=== PATIENT | male | born 1945 | race Caucasian/White ===

== ENCOUNTER 2020-04-04 19:32 | Inpatient (IN) | payer MEDICARE, MEDICAID ==
[~2020-04-04] VITALS: Ht 190.5 cm; Wt 107.1 kg
[~2020-04-04 19:32] MED LIST: ASPI1CPM9 PO; ATOR20TA PO; FLO0.4C PO; ZOLP5TAB8 PO
--- NOTE | 2020-04-04 20:07 | NUR ---
To CT scan via gurney with the side rails raised.
[2020-04-04 20:14] LABS: BASOPHILS # (AUTO) 0.1 X10'3 (0-0.2); BASOPHILS % (AUTO) 0.6 % (0-1); EOSINOPHILS % (AUTO) 0.3 % (0-6); HEMOGLOBIN 14.8 g/dl (14.0-17.9); LYMPHOCYTES # (AUTO) 1.9 X10'3 (1.1-4.8); LYMPHOCYTES % (AUTO) 13.3 % (21-51); MEAN CORPUSCULAR HEMOGLOBIN 29.5 PG (27.0-31.0); MEAN CORPUSCULAR HGB CONC 34.5 g/dL (33.0-36.5); MEAN CORPUSCULAR VOLUME 85.6 FL (78-98); MEAN PLATELET VOLUME 8.3 FL (7.4-10.4); MONOCYTES # (AUTO) 1.3 X10'3 (0-0.9); MONOCYTES % (AUTO) 9.1 % (2-12); NEUTROPHILS # (AUTO) 11.2 X10'3 (1.8-7.7); NEUTROPHILS % (AUTO) 76.7 % (42-75); PLATELET COUNT 209 X10'3 (140-440); RED BLOOD COUNT 5.02 X10'6 (4.70-6.10); RED CELL DISTRIBUTION WIDTH 14.2 % (11.5-14.5); WHITE BLOOD COUNT 14.6 X10'3 (4.5-11.0)
--- NOTE | 2020-04-04 20:21 | NUR ---
relieving RN for break, gave pt warm blanket, pt is resting quietly on gurney
[2020-04-04 20:25] LABS: PARTIAL THROMBOPLASTIN TIME 26 SECONDS (22-32)
[2020-04-04 20:27] LABS: ALANINE AMINOTRANSFERASE 22 U/L (12-78); ALBUMIN 2.8 G/DL (3.4-5.0); ALBUMIN/GLOBULIN RATIO 0.7 (1.1-1.5); ALKALINE PHOSPHATASE 119 IU/L (46-116); ANION GAP 9 (8-16); ASPARTATE AMINO TRANSFERASE 24 U/L (10-37); BILIRUBIN,TOTAL 2.1 MG/DL (0.1-1.0); BLOOD UREA NITROGEN 14 MG/DL (7-18); BUN/CREATININE RATIO 13.2 (5.4-32.0); CHLORIDE 99 MMOL/L (99-107); CREATININE 1.06 MG/DL (0.60-1.10); GLUCOSE 130 MG/DL (70-104); SODIUM 137 MMOL/L (135-145); TOTAL CARBON DIOXIDE 28.7 MMOL/L (24-32); eGFR 68 ML/MIN
[2020-04-04 20:29] LABS: POTASSIUM 2.3 MMOL/L (3.5-5.1)
[2020-04-04] MEDS ORDERED: potassium 10mEq/100ml NS w/LIDOcaine (10mg/bag) IV SCH (20:35)
[2020-04-04 20:40] LABS: HEMOGLOBIN A1C 6.2 % (4.5-6.2)
[2020-04-04] MEDS: potassium Cl 10 mEq/100mL bag IV SCH ×2 (20:47→22:10)
[2020-04-04] MEDS: magnesium 2GM in 50ml NS 50 ML IV SCH ×2 (20:50→22:11)
[2020-04-04] MEDS ORDERED: ondansetron/PF 4mg/2ml inj IV ONE (21:00)
--- NOTE | 2020-04-04 21:00 | NUR ---
Pt reports nausea started after the potassium and magnesium infusion started. Dr. Rios notified and order for zofran obtained.
[2020-04-04] MEDS ORDERED: metroNIDAZOLE-Flagyl 500mg/NS 100 ML IV STA (21:12)
[2020-04-04] MEDS ORDERED: ASPI-1265 PO (21:14)
[2020-04-04] MEDS ORDERED: FINA5TAB11 PO (21:14)
[2020-04-04] MEDS ORDERED: HYDR25TA4 PO (21:14)
[2020-04-04] MEDS ORDERED: METF-950 PO (21:14)
[2020-04-04] MEDS ORDERED: OLAN5TAB26 PO (21:14)
[2020-04-04] MEDS ORDERED: ATOR20TA66 PO (21:14)
[2020-04-04] MEDS ORDERED: FLO0.4C PO (21:14)
[2020-04-04] MEDS ORDERED: ciprofloxacin lact 400MG/200ML 200 ML IV SCH (21:15)
[2020-04-04] MEDS ORDERED: insulin Lispro (HumaLOG) vial - multi-dose SQ SCH (22:05)
[2020-04-04] MEDS ORDERED: acetaminophen 325mg tablet PO PRN (22:05)
[2020-04-04] MEDS ORDERED: glucagon, human recombinant 1mg kit SUBCUT PRN (22:05)
[2020-04-04] MEDS ORDERED: dextrose ORAL solution 15 GM/59 ML bottle PO PRN ×2 (22:05)
[2020-04-04] MEDS ORDERED: MESSAGE TO PHARMACY PO ONE (22:05)
[2020-04-04] MEDS ORDERED: ondansetron/PF 4mg/2ml inj IV PRN (22:05)
[2020-04-04] MEDS ORDERED: dextrose 50%-water 50ml dispensing syringe IV PRN ×2 (22:05)
[2020-04-04] MEDS: potassium CL 10mEq/100ml bag 100 ML IV PRN (23:53)
[2020-04-05] VITALS: BP 134/82
[2020-04-05] MEDS: normal saline 1000ml 1,000 ML IV SCH ×3 (00:15→14:53)
[2020-04-05] MEDS: potassium CL 10mEq/100ml bag 100 ML IV PRN ×7 (01:10→19:02)
--- NOTE | 2020-04-05 02:00 | NUR ---
UA collected and sent to lab.
[2020-04-05 02:11] LABS: CLARITY,URINE SLIGHTLY CLOUDY (Clear); COLOR,URINE YELLOW (Yellow); GLUCOSE, URINE NEGATIVE (Neg); KETONES,URINE TRACE mg/dl (Neg); LEUKOCYTE ESTERASE ,URINE MODERATE (Neg); NITRITES, URINE POSITIVE (Neg); OCCULT BLOOD,URINE MODERATE (Neg); PROTEIN,URINE TRACE mg/dl (Neg)
[2020-04-05 02:18] LABS: UA COLLECTION TYPE CLN CATCH MIDSTREAM
[2020-04-05 02:19] LABS: BACTERIA,URINE 4+ /HPF (Neg); SQUAMOUS EPITHELIAL CELL,UR FEW /LPF (FEW); WBC,URINE 50-100 /HPF (0-4)
[2020-04-05] MEDS: metroNIDAZOLE-Flagyl 500mg/NS 100 ML IV SCH ×2 (05:56→14:47)
[2020-04-05 06:40] LABS: BASOPHILS % (AUTO) 0.4 % (0-1); EOSINOPHILS # (AUTO) 0.1 X10'3 (0-0.9); HEMATOCRIT 45.2 % (42.0-52.0); HEMOGLOBIN 15.2 g/dl (14.0-17.9); LYMPHOCYTES # (AUTO) 1.5 X10'3 (1.1-4.8); LYMPHOCYTES % (AUTO) 11.9 % (21-51); MEAN CORPUSCULAR HEMOGLOBIN 29.4 PG (27.0-31.0); MEAN CORPUSCULAR HGB CONC 33.6 g/dL (33.0-36.5); MEAN CORPUSCULAR VOLUME 87.7 FL (78-98); MEAN PLATELET VOLUME 8.3 FL (7.4-10.4); MONOCYTES % (AUTO) 7.8 % (2-12); NEUTROPHILS # (AUTO) 10.3 X10'3 (1.8-7.7); NEUTROPHILS % (AUTO) 78.9 % (42-75); PLATELET COUNT 190 X10'3 (140-440); RED BLOOD COUNT 5.15 X10'6 (4.70-6.10); RED CELL DISTRIBUTION WIDTH 14.5 % (11.5-14.5)
[2020-04-05 07:12] LABS: ALANINE AMINOTRANSFERASE 19 U/L (12-78); ALBUMIN 2.7 G/DL (3.4-5.0); ALBUMIN/GLOBULIN RATIO 0.6 (1.1-1.5); ALKALINE PHOSPHATASE 118 IU/L (46-116); ANION GAP 10 (8-16); BILIRUBIN,TOTAL 1.9 MG/DL (0.1-1.0); BLOOD UREA NITROGEN 13 MG/DL (7-18); CALCIUM 8.7 MG/DL (8.5-10.1); CHLORIDE 100 MMOL/L (99-107); CREATININE 0.93 MG/DL (0.60-1.10); GLUCOSE 118 MG/DL (70-104); MAGNESIUM 2.9 MG/DL (1.5-2.4); SODIUM 136 MMOL/L (135-145); TOTAL CARBON DIOXIDE 26.3 MMOL/L (24-32); TOTAL PROTEIN 7.2 G/DL (6.4-8.2); eGFR 79 ML/MIN
[2020-04-05 07:14] LABS: ASPARTATE AMINO TRANSFERASE 32 U/L (10-37)
[2020-04-05 07:15] LABS: POTASSIUM 3.1 MMOL/L (3.5-5.1)
[2020-04-05 07:17] VITALS: BP 133/79
[2020-04-05] MEDS: tamsulosin 0.4mg capsule PO SCH (07:24)
[2020-04-05] MEDS: ciprofloxacin lact 400MG/200ML 200 ML IV SCH ×2 (07:56→21:28)
[2020-04-05] MEDS ORDERED: heparin, porcine 5000 units/ml vial SQ SCH (08:00)
[2020-04-05] MEDS: K and/or MAG REPLACEMENT MC SCH ×2 (08:03→20:00)
--- NOTE | 2020-04-05 09:28 | NUR ---
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
[2020-04-05] MEDS ORDERED: iohexol 300mg/ml 100ml inj. ONE (10:20)
[2020-04-05] MEDS ORDERED: diatr meglu/diatrizoate 30ml oral sol.-(3 dose) bottle ONE (10:40)
--- NOTE | 2020-04-05 12:01 | NUR ---
DM/malnutrition consults: Per consult pt newly diagnosed however per H&P pt already with rx for Metformin with known PMH of T2DM per ED report. Current A1c is 6.2%, DM education not warranted at this time. 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 Only wt hx is 99 kg taken in November 2012 with nitin, current documented wt is 106 kg however no documentation of how wt was obtained. Pt currently NPO with NG tube in place, admit with questionable diverticulitis, pelvic abscess, or bowel obstruction per MD note. Pt documented with severe general weakness and no edema. Pt appears well developed and well nourished per ED report. Pt currently lacks a minimum of two criteria for malnutrition. Pt with a low Steven of 12, no edema or wounds per physical assessment. Will continue to follow. Addendum: 04/05/20 at [address] Amended: Links added.
[2020-04-05 15:30] VITALS: BP 143/81
[2020-04-05] MEDS ORDERED: iohexol 350MG/ML 100ml bottle IV ONE (15:50)
[2020-04-05] MEDS ORDERED: heparin 10,000 units/1 ML INJ IV SCH (16:55)
[2020-04-05] MEDS ORDERED: heparin 10,000 units/1 ML INJ IV ONE (16:55)
[2020-04-05] MEDS ORDERED: heparin 10,000 units/1 ML INJ IV PRN (17:30)
[2020-04-05] MEDS: heparin 25,000 UNIT/250ml bag 250 ML IV SCH (17:48)
[2020-04-05 17:50] LABS: ABG BASE EXCESS 4.4 mmol/L (-2.0-3.0); ABG HCO3 27.9 mmol/L (22.0-26.0); ABG OXYGEN SATURATION 92.6 % (95-98); ABG PH (T) 7.484 (7.350-7.450); ABG PO2 (T) 60.9 mmHg (83-108); FCOHb 0.5 % (0.5-1.5); FMetHb 0.2 % (0.3-1.12); TOTAL HEMOGLOBIN 14.9 G/dl (14.0-17.9)
[2020-04-05 17:57] LABS: BASOPHILS # (AUTO) 0.1 X10'3 (0-0.2); BASOPHILS % (AUTO) 0.7 % (0-1); EOSINOPHILS # (AUTO) 0.1 X10'3 (0-0.9); EOSINOPHILS % (AUTO) 0.8 % (0-6); HEMATOCRIT 41.3 % (42.0-52.0); HEMOGLOBIN 14.2 g/dl (14.0-17.9); LYMPHOCYTES # (AUTO) 1.1 X10'3 (1.1-4.8); LYMPHOCYTES % (AUTO) 8.7 % (21-51); MEAN CORPUSCULAR HEMOGLOBIN 29.6 PG (27.0-31.0); MEAN CORPUSCULAR HGB CONC 34.4 g/dL (33.0-36.5); MEAN PLATELET VOLUME 8.4 FL (7.4-10.4); MONOCYTES % (AUTO) 8.1 % (2-12); NEUTROPHILS # (AUTO) 10.2 X10'3 (1.8-7.7); NEUTROPHILS % (AUTO) 81.7 % (42-75); PLATELET COUNT 195 X10'3 (140-440); RED BLOOD COUNT 4.81 X10'6 (4.70-6.10); RED CELL DISTRIBUTION WIDTH 14.2 % (11.5-14.5); WHITE BLOOD COUNT 12.5 X10'3 (4.5-11.0)
[2020-04-05 18:10] LABS: PARTIAL THROMBOPLASTIN TIME 26 SECONDS (22-32)
--- NOTE | 2020-04-05 18:30 | NUR ---
Patient in room SURG 347. I have received report from CHANDRA VANN and had the opportunity to ask questions and assume patient care. PATIENT FOR TRANSFER TO PCU FOR CLOSE MONITORING AWAITING FOR ROOM ASSIGNMENT.
[2020-04-05 19:00] VITALS: BP 132/75
--- NOTE | 2020-04-05 19:10 | NUR ---
PAGER ID: [phone] MESSAGE: Janine Surg [id number] Re: [id number] Sebastien Medication neostigmine Can't be given on PCU please call
--- NOTE | 2020-04-05 19:45 | NUR ---
CHARGE NURSE GOT ROOM ASSIGNMENT OF PATIENT IN PCU ROOM 3014W. PATIENT REPORT GIVEN TO KALYAN VANN.
--- NOTE | 2020-04-05 19:55 | NUR ---
PATIENT TRANSFERRED TO PCU ROOM 3018A IN A BED WITH STAFF WITH PATIENT'S BELONGINGS.
[2020-04-05 20:00] VITALS: BP 122/72
[2020-04-05] MEDS: zolpidem 5mg tablet PO SCH (21:29)
[2020-04-05 22:00] VITALS: BP 113/73
[2020-04-06] MEDS: metroNIDAZOLE-Flagyl 500mg/NS 100 ML IV SCH ×4 (00:46→23:29)
[2020-04-06 02:00] VITALS: BP 119/78
[2020-04-06] MEDS: normal saline 1000ml 1,000 ML IV SCH ×2 (02:55→14:02)
[2020-04-06 03:29] LABS: BASOPHILS # (AUTO) 0.1 X10'3 (0-0.2); BASOPHILS % (AUTO) 0.7 % (0-1); EOSINOPHILS # (AUTO) 0.1 X10'3 (0-0.9); EOSINOPHILS % (AUTO) 1.1 % (0-6); HEMATOCRIT 42.4 % (42.0-52.0); HEMOGLOBIN 14.6 g/dl (14.0-17.9); LYMPHOCYTES # (AUTO) 1.7 X10'3 (1.1-4.8); LYMPHOCYTES % (AUTO) 13.7 % (21-51); MEAN CORPUSCULAR HEMOGLOBIN 29.5 PG (27.0-31.0); MEAN CORPUSCULAR HGB CONC 34.5 g/dL (33.0-36.5); MEAN CORPUSCULAR VOLUME 85.6 FL (78-98); MEAN PLATELET VOLUME 8.3 FL (7.4-10.4); MONOCYTES % (AUTO) 7.6 % (2-12); NEUTROPHILS # (AUTO) 9.6 X10'3 (1.8-7.7); NEUTROPHILS % (AUTO) 76.9 % (42-75); PLATELET COUNT 216 X10'3 (140-440); RED BLOOD COUNT 4.96 X10'6 (4.70-6.10); RED CELL DISTRIBUTION WIDTH 14.1 % (11.5-14.5); WHITE BLOOD COUNT 12.5 X10'3 (4.5-11.0)
[2020-04-06 03:44] LABS: ALANINE AMINOTRANSFERASE 19 U/L (12-78); ALBUMIN 2.5 G/DL (3.4-5.0); ALBUMIN/GLOBULIN RATIO 0.6 (1.1-1.5); ALKALINE PHOSPHATASE 109 IU/L (46-116); ANION GAP 7 (8-16); ASPARTATE AMINO TRANSFERASE 21 U/L (10-37); BILIRUBIN,TOTAL 1.2 MG/DL (0.1-1.0); BLOOD UREA NITROGEN 11 MG/DL (7-18); BUN/CREATININE RATIO 12.1 (5.4-32.0); CALCIUM 8.7 MG/DL (8.5-10.1); CHLORIDE 100 MMOL/L (99-107); CREATININE 0.91 MG/DL (0.60-1.10); GLUCOSE 111 MG/DL (70-104); SODIUM 137 MMOL/L (135-145); TOTAL CARBON DIOXIDE 30.4 MMOL/L (24-32); TOTAL PROTEIN 6.8 G/DL (6.4-8.2); eGFR 81 ML/MIN
[2020-04-06 03:48] LABS: POTASSIUM 2.6 MMOL/L (3.5-5.1)
--- NOTE | 2020-04-06 04:21 | NUR ---
notified DVT PTT was 135. Will follow protocol per order and turn off for 2 hours.
--- NOTE | 2020-04-06 04:24 | NUR ---
Potassium is 2.6. Will follow protocol.
[2020-04-06] MEDS: potassium CL 10mEq/100ml bag 100 ML IV PRN ×6 (04:30→15:57)
[2020-04-06 06:00] VITALS: BP 129/67
--- NOTE | 2020-04-06 06:15 | NUR ---
Problems reprioritized. Patient report given, questions answered & plan of care reviewed with EDWAR Roger.
--- NOTE | 2020-04-06 06:17 | NUR ---
Patient in room PCU 3018. I have received report from Graciela VANN and had the opportunity to ask questions and assume patient care.
[2020-04-06] MEDS: heparin 25,000 UNIT/250ml bag 250 ML IV SCH ×2 (06:36→11:22)
[2020-04-06] MEDS: K and/or MAG REPLACEMENT MC SCH ×2 (07:46→19:36)
[2020-04-06] MEDS: tamsulosin 0.4mg capsule PO SCH (07:47)
[2020-04-06] MEDS: ciprofloxacin lact 400MG/200ML 200 ML IV SCH ×2 (09:36→20:42)
[2020-04-06 11:00] VITALS: BP 133/83
[2020-04-06 15:00] VITALS: BP 128/76
[2020-04-06] MEDS ORDERED: POTASSIUM BICARB 20meq eff tab 20 MEQ TABLET.EFF PO ONE (15:45)
[2020-04-06] MEDS ORDERED: neostigmine methylsulfate 1 MG/ML 10ml vial IV ONE ×2 (16:00→19:00)
[2020-04-06] MEDS ORDERED: atropine 0.1mg/ml 10ml syringe ONE (16:29)
[2020-04-06] MEDS ORDERED: atropine 0.1mg/ml 10ml syringe IV ONE (16:30)
--- NOTE | 2020-04-06 17:00 | NUR ---
Administered neostigmine per MD orders, pt placed on bedside monitor, atropine and crash cart at bedside per Dr. Sapp recommendations, post administration patient went bradycardic with the lowest at 38 but was able to recover and maintain BPM in 70's-80's, patient had mucus BM however abdomen is still firm, reported to Dr. Sapp and she will come and assess patient, will continue to monitor.
[2020-04-06 18:00] VITALS: BP 132/76
--- NOTE | 2020-04-06 18:31 | NUR ---
Problems reprioritized. Patient report given, questions answered & plan of care reviewed with Michael VANN.
--- NOTE | 2020-04-06 18:35 | NUR ---
Patient in room PCU 3018. I have received report from Toni VANN and had the opportunity to ask questions and assume patient care.
[2020-04-06] MEDS: potassium CL 10mEq/100ml bag 100 ML IV SCH ×4 (19:12→22:00)
[2020-04-06] MEDS: zolpidem 5mg tablet PO SCH (20:37)
[2020-04-06 22:00] VITALS: BP 130/73
[2020-04-07] MEDS: normal saline 1000ml 1,000 ML IV SCH ×3 (00:02→20:02)
[2020-04-07 02:00] VITALS: BP 137/72
[2020-04-07 02:45] LABS: BASOPHILS # (AUTO) 0.1 X10'3 (0-0.2); BASOPHILS % (AUTO) 0.5 % (0-1); EOSINOPHILS # (AUTO) 0.1 X10'3 (0-0.9); EOSINOPHILS % (AUTO) 0.3 % (0-6); HEMATOCRIT 31.4 % (42.0-52.0); HEMOGLOBIN 10.5 g/dl (14.0-17.9); LYMPHOCYTES # (AUTO) 1.5 X10'3 (1.1-4.8); LYMPHOCYTES % (AUTO) 9.4 % (21-51); MEAN CORPUSCULAR HEMOGLOBIN 29.1 PG (27.0-31.0); MEAN CORPUSCULAR HGB CONC 33.4 g/dL (33.0-36.5); MEAN PLATELET VOLUME 8.6 FL (7.4-10.4); MONOCYTES # (AUTO) 1.1 X10'3 (0-0.9); NEUTROPHILS # (AUTO) 13.2 X10'3 (1.8-7.7); NEUTROPHILS % (AUTO) 82.8 % (42-75); PLATELET COUNT 307 X10'3 (140-440); RED BLOOD COUNT 3.61 X10'6 (4.70-6.10); RED CELL DISTRIBUTION WIDTH 14.5 % (11.5-14.5)
[2020-04-07 02:54] LABS: ALANINE AMINOTRANSFERASE 14 U/L (12-78); ALBUMIN 2.2 G/DL (3.4-5.0); ALBUMIN/GLOBULIN RATIO 0.6 (1.1-1.5); ALKALINE PHOSPHATASE 92 IU/L (46-116); ANION GAP 7 (8-16); ASPARTATE AMINO TRANSFERASE 23 U/L (10-37); BILIRUBIN,TOTAL 0.9 MG/DL (0.1-1.0); BLOOD UREA NITROGEN 16 MG/DL (7-18); BUN/CREATININE RATIO 18.6 (5.4-32.0); CALCIUM 8.9 MG/DL (8.5-10.1); CHLORIDE 103 MMOL/L (99-107); CREATININE 0.86 MG/DL (0.60-1.10); GLUCOSE 116 MG/DL (70-104); POTASSIUM 3.2 MMOL/L (3.5-5.1); SODIUM 139 MMOL/L (135-145); TOTAL CARBON DIOXIDE 29.4 MMOL/L (24-32); TOTAL PROTEIN 6.1 G/DL (6.4-8.2); eGFR 87 ML/MIN
[2020-04-07] MEDS: potassium CL 10mEq/100ml bag 100 ML IV PRN ×3 (03:50→07:37)
[2020-04-07] MEDS: heparin 25,000 UNIT/250ml bag 250 ML IV SCH ×2 (04:50→09:29)
[2020-04-07] MEDS: metroNIDAZOLE-Flagyl 500mg/NS 100 ML IV SCH ×3 (05:51→20:27)
[2020-04-07 06:00] VITALS: BP 144/93
--- NOTE | 2020-04-07 06:25 | NUR ---
Problems reprioritized. Patient report given, questions answered & plan of care reviewed with Denny VANN.
--- NOTE | 2020-04-07 06:35 | NUR ---
Patient in room PCU 3018. I have received report from EDWAR Rodriguez and had the opportunity to ask questions and assume patient care.
[2020-04-07] MEDS: K and/or MAG REPLACEMENT MC SCH ×2 (07:22→20:00)
[2020-04-07] MEDS: ciprofloxacin lact 400MG/200ML 200 ML IV SCH (07:37)
[2020-04-07] MEDS: finasteride 5mg tablet PO SCH (07:47)
[2020-04-07] MEDS: tamsulosin 0.4mg capsule PO SCH ×2 (08:00→10:33)
[2020-04-07] MEDS: OLANZAPINE 5 MG TABLET PO SCH (08:00)
--- NOTE | 2020-04-07 08:21 | NUR ---
AGER ID: [phone] MESSAGE: [phone] Benoit Crowe: Do you want a new KUB today? KUB from yesterday show NG is kinked on itself. NG is suctioning out GI contents well. And sounds are audible when we pushing air through and listening. EDWAR Baldwin Ext [phone]
[2020-04-07] MEDS ORDERED: POTASSIUM BICARB 20meq eff tab 20 MEQ TABLET.EFF PO ONE (08:45)
[2020-04-07] MEDS: aspirin 81mg tab.chew PO SCH (08:52)
[2020-04-07] MEDS: atorvastatin 20mg tablet PO SCH (08:52)
[2020-04-07 11:00] VITALS: BP 150/88
[2020-04-07] MEDS ORDERED: neostigmine methylsulfate 1 MG/ML 10ml vial IV ONE (12:00)
[2020-04-07 15:00] VITALS: BP 143/82
[2020-04-07 16:00] LABS: BASOPHILS # (AUTO) 0.2 X10'3 (0-0.2); BASOPHILS % (AUTO) 1.7 % (0-1); EOSINOPHILS # (AUTO) 0.1 X10'3 (0-0.9); EOSINOPHILS % (AUTO) 1.3 % (0-6); HEMATOCRIT 39.4 % (42.0-52.0); HEMOGLOBIN 13.4 g/dl (14.0-17.9); LYMPHOCYTES # (AUTO) 1.1 X10'3 (1.1-4.8); LYMPHOCYTES % (AUTO) 9.7 % (21-51); MEAN CORPUSCULAR HEMOGLOBIN 29.3 PG (27.0-31.0); MEAN CORPUSCULAR HGB CONC 33.9 g/dL (33.0-36.5); MEAN CORPUSCULAR VOLUME 86.3 FL (78-98); MEAN PLATELET VOLUME 9.1 FL (7.4-10.4); MONOCYTES # (AUTO) 0.8 X10'3 (0-0.9); NEUTROPHILS # (AUTO) 8.9 X10'3 (1.8-7.7); NEUTROPHILS % (AUTO) 80.3 % (42-75); PLATELET COUNT 250 X10'3 (140-440); RED BLOOD COUNT 4.57 X10'6 (4.70-6.10); RED CELL DISTRIBUTION WIDTH 14.1 % (11.5-14.5); WHITE BLOOD COUNT 11.1 X10'3 (4.5-11.0)
[2020-04-07] MEDS: pantoprazole 40MG/NS 100ML BAG 100 ML IV SCH ×2 (16:48→20:30)
--- NOTE | 2020-04-07 18:31 | NUR ---
Problems reprioritized. Patient report given, questions answered & plan of care reviewed with EDWAR Daniels.
--- NOTE | 2020-04-07 18:32 | NUR ---
Patient in room PCU 3018A. I have received report from EDWAR DOAN and had the opportunity to ask questions and assume patient care. PATIENT AWAKE FOR BEDSIDE REPORT. NG ON LOW/INTERMITTENT SUCTION WITH DARK BROWN/RED OUTPUT. ON ROOM AIR WITH HEPARIN GTT INFUSING AT 1400 UNITS/HR, NS INFUSING AT 100 ML/HR, AND PROTONIX GTT INFUSING AT 20 ML/HR. WILL CONTINUE TO MONITOR CLOSELY.
[2020-04-07 19:00] VITALS: BP 146/85
[2020-04-07] MEDS: zolpidem 5mg tablet PO SCH (20:10)
--- NOTE | 2020-04-07 21:32 | NUR ---
6 PTT 66 SECONDS AND WITHIN THERAPEUTIC RANGE FOR DVT/PE HEPARIN GTT PROTOCOL. NEXT DRAW AT 0300. WILL CONTINUE TO MONITOR CLOSELY.
[2020-04-07 22:31] VITALS: BP 139/80
[2020-04-08] MEDS: pantoprazole 40MG/NS 100ML BAG 100 ML IV SCH ×5 (01:00→21:21)
[2020-04-08] MEDS: heparin 25,000 UNIT/250ml bag 250 ML IV SCH ×2 (01:03→14:01)
[2020-04-08 03:00] VITALS: BP 133/76
[2020-04-08 03:44] LABS: BASOPHILS # (AUTO) 0.1 X10'3 (0-0.2); BASOPHILS % (AUTO) 1.1 % (0-1); EOSINOPHILS # (AUTO) 0.2 X10'3 (0-0.9); EOSINOPHILS % (AUTO) 1.9 % (0-6); HEMOGLOBIN 13.2 g/dl (14.0-17.9); LYMPHOCYTES # (AUTO) 1.5 X10'3 (1.1-4.8); LYMPHOCYTES % (AUTO) 17.7 % (21-51); MEAN CORPUSCULAR HGB CONC 33.9 g/dL (33.0-36.5); MEAN CORPUSCULAR VOLUME 85.7 FL (78-98); MEAN PLATELET VOLUME 8.4 FL (7.4-10.4); MONOCYTES # (AUTO) 0.7 X10'3 (0-0.9); MONOCYTES % (AUTO) 7.8 % (2-12); NEUTROPHILS # (AUTO) 6.2 X10'3 (1.8-7.7); NEUTROPHILS % (AUTO) 71.5 % (42-75); PLATELET COUNT 267 X10'3 (140-440); RED BLOOD COUNT 4.55 X10'6 (4.70-6.10); RED CELL DISTRIBUTION WIDTH 14.6 % (11.5-14.5); WHITE BLOOD COUNT 8.7 X10'3 (4.5-11.0)
[2020-04-08 04:02] LABS: ALANINE AMINOTRANSFERASE 14 U/L (12-78); ALBUMIN 2.2 G/DL (3.4-5.0); ALBUMIN/GLOBULIN RATIO 0.6 (1.1-1.5); ALKALINE PHOSPHATASE 89 IU/L (46-116); ANION GAP 6 (8-16); ASPARTATE AMINO TRANSFERASE 22 U/L (10-37); BILIRUBIN,TOTAL 0.9 MG/DL (0.1-1.0); CALCIUM 8.7 MG/DL (8.5-10.1); CHLORIDE 106 MMOL/L (99-107); CREATININE 0.87 MG/DL (0.60-1.10); GLUCOSE 100 MG/DL (70-104); SODIUM 141 MMOL/L (135-145); TOTAL CARBON DIOXIDE 28.7 MMOL/L (24-32); TOTAL PROTEIN 6.1 G/DL (6.4-8.2); eGFR 86 ML/MIN
[2020-04-08 04:22] LABS: BLOOD UREA NITROGEN 8 MG/DL (7-18); BUN/CREATININE RATIO 9.2 (5.4-32.0)
[2020-04-08 04:24] LABS: POTASSIUM 2.8 MMOL/L (3.5-5.1)
[2020-04-08] MEDS ORDERED: magnesium Cl slow-release 64mg tablet PO PRN (04:35)
[2020-04-08] MEDS ORDERED: magnesium 4gm in 100ml NS 100 ML IV PRN (04:35)
[2020-04-08] MEDS ORDERED: potassium Cl 20 mEq SR tablet PO PRN ×2 (04:35)
[2020-04-08] MEDS ORDERED: K and/or MAG REPLACEMENT MC SCH (04:35)
[2020-04-08] MEDS: potassium CL 10mEq/100ml bag 100 ML IV PRN ×5 (05:05→12:19)
[2020-04-08] MEDS: normal saline 1000ml 1,000 ML IV SCH ×3 (05:05→20:08)
[2020-04-08] MEDS: metroNIDAZOLE-Flagyl 500mg/NS 100 ML IV SCH ×3 (06:23→21:21)
--- NOTE | 2020-04-08 06:30 | NUR ---
Patient in room PCU 3018. I have received report from Jeremiah VANN and had the opportunity to ask questions and assume patient care.
--- NOTE | 2020-04-08 06:43 | NUR ---
Problems reprioritized. Patient report given, questions answered & plan of care reviewed with EDWAR MCCAULEY AND EDWAR TURNER.
--- NOTE | 2020-04-08 06:57 | NUR ---
Patient in room PCU 3018. I have received report from Jeremiah VANN and had the opportunity to ask questions and assume patient care.
[2020-04-08 07:00] VITALS: BP 147/83
[2020-04-08 07:31] LABS: MAGNESIUM 2.3 MG/DL (1.5-2.4)
[2020-04-08 07:34] LABS: POTASSIUM 3.1 MMOL/L (3.5-5.1)
[2020-04-08] MEDS: atorvastatin 20mg tablet PO SCH (08:00)
[2020-04-08] MEDS: aspirin 81mg tab.chew PO SCH (08:00)
[2020-04-08] MEDS: K and/or MAG REPLACEMENT MC SCH ×2 (08:00→20:00)
[2020-04-08] MEDS: OLANZAPINE 5 MG TABLET PO SCH (08:00)
[2020-04-08] MEDS: finasteride 5mg tablet PO SCH (08:00)
[2020-04-08] MEDS: tamsulosin 0.4mg capsule PO SCH (08:00)
[2020-04-08] MEDS: CefTRIAXone 2gm/D5W 50ml 50 ML IV SCH (08:20)
--- NOTE | 2020-04-08 08:52 | NUR ---
Paged Darren Re: Benoit Crowe, rm [id number]. Patient has NG tube to suction. Am medication are PO. Would you like us to stop suction and crash/adminst am medications? Lina VANN [phone]
--- NOTE | 2020-04-08 09:24 | NUR ---
Problems reprioritized. Patient report given, questions answered & plan of care reviewed with Shagufta Medrano. Patient stable at transfer of care.
--- NOTE | 2020-04-08 09:25 | NUR ---
Patient in room PCU 3018. I have received report from EDWAR Chacon and had the opportunity to ask questions and assume patient care.
--- NOTE | 2020-04-08 09:56 | NUR ---
PAGER ID: [phone] MESSAGE: Dr. Banks, pt Saul Crowe [facility] rm 18A. pt NPO, refusing some meds. Have questions about the medications. Please call when available? Sendy Eagle RN [phone]
[2020-04-08 11:00] VITALS: BP 130/81
--- NOTE | 2020-04-08 11:38 | NUR ---
Atropine doses x2 on eMAR, Not given by me during this shift. They were one time doses. timed-out.
--- NOTE | 2020-04-08 12:30 | NUR ---
PAGER ID: [phone] MESSAGE: Evangelist Banks pt Saul Crowe on PCU rm 18A, now having bright red blood from NG tube. Please call Eva Eagle RN PCU [phone]
--- NOTE | 2020-04-08 12:33 | NUR ---
Dr. Banks order the low intermittent suction to be on hold for now due to the bright red blood from the NG tube.
--- NOTE | 2020-04-08 12:47 | NUR ---
Contacted Dr. Banks regarding change in the color of fluid from NG tube. Patient is on heparin. Dr. Banks wanted NG tube stopped for 4 hours then turn back on to reassess. Dr. Banks states pt has large PE and she does not want the Heparin stopped.
[2020-04-08] MEDS ORDERED: bisacodyl 10mg suppository rectal RC PRN (13:30)
[2020-04-08 15:00] VITALS: BP 106/76
--- NOTE | 2020-04-08 16:21 | NUR ---
PRESSURE ULCER EDUCATION: DEFINITION: A pressure ulcer is an area of skin that breaks down when you stay in one position too long. The constant pressure against the skin reduces the blood flow to that area and the affected tissue dies. CAUSES: "Being bedridden or in a wheelchair "Fragile skin "Having a chronic condition, such as diabetes or vascular disease "Inability to move certain parts of your body without assistance "Older age "Incontinence of urine or stool SYMPTOMS: "A reddened area that DOES NOT turn white when pressed on - this can be the beginning of a pressure ulcer "A blister, deep sore or a crater - these can be advanced pressure ulcers FIRST AID: "Relieve the pressure on this area "Keep the area clean and dry "Call your primary doctor if you see any of the above symptoms "DO NOT massage the area "DO NOT use a donut shaped or ring shaped pillow- these actually interfere with the blood flow and cause complications PREVENTION: "Check for pressure ulcers everyday "Change position at least every two hours to relieve pressure "Use items that help relieve pressure- pillows, sheepskin, foam padding, and powders. "Keep skin clean and dry "Eat healthy well balanced meals "Exercise daily IF YOU SEE ANY OF THESE SYMPTOMS WHILE IN THE HOSPITAL - TELL YOUR NURSE IMMEDIATELY. IF YOU SEE ANY OF THESE SYMPTOMS WHILE AT HOME OR HAVE ANY QUESTIONS OR CONCERNS ABOUT PRESSURE ULCERS - CALL YOUR PRIMARY DOCTOR IMMEDIATELY. Addendum: 04/08/20 at 1621 by Catrina Milner RN Amended: Links added.
--- NOTE | 2020-04-08 18:25 | NUR ---
Patient in room PCU 3018A. I have received report from EDWAR FREITAS and had the opportunity to ask questions and assume patient care. PATIENT AWAKE FOR BEDSIDE REPORT. PATIENT ON 2L AND STABLE AT THIS TIME. HEPARIN INFUSING AT 1300 UNITS/HR. NEXT PTT AT 2000 PER DAY SHIFT RN. PROTONIX INFUSING AT 20 ML/HR. NS INFUSING AT 100 ML/HR PER PROVIDER ORDER. WILL CONTINUE TO MONITOR CLOSELY.
--- NOTE | 2020-04-08 18:25 | NUR ---
Problems reprioritized. Patient report given, questions answered & plan of care reviewed with EDWAR Crenshaw.
[2020-04-08 19:00] VITALS: BP 146/93
[2020-04-08] MEDS: lactobacillus rhamnosus 10,000 MMU CELLS/CAPSULE PO SCH ×2 (20:00→21:21)
[2020-04-08] MEDS: zolpidem 5mg tablet PO SCH ×2 (21:00→21:21)
[2020-04-08 23:00] VITALS: BP 150/89
[2020-04-09] MEDS: pantoprazole 40MG/NS 100ML BAG 100 ML IV SCH ×5 (01:42→21:48)
[2020-04-09 02:00] VITALS: BP 154/86
[2020-04-09 06:19] LABS: BASOPHILS # (AUTO) 0.1 X10'3 (0-0.2); BASOPHILS % (AUTO) 0.6 % (0-1); EOSINOPHILS # (AUTO) 0.3 X10'3 (0-0.9); EOSINOPHILS % (AUTO) 3.5 % (0-6); HEMATOCRIT 37.9 % (42.0-52.0); HEMOGLOBIN 12.8 g/dl (14.0-17.9); LYMPHOCYTES # (AUTO) 1.5 X10'3 (1.1-4.8); LYMPHOCYTES % (AUTO) 15.1 % (21-51); MEAN CORPUSCULAR HEMOGLOBIN 29.1 PG (27.0-31.0); MEAN CORPUSCULAR HGB CONC 33.8 g/dL (33.0-36.5); MEAN CORPUSCULAR VOLUME 86.1 FL (78-98); MEAN PLATELET VOLUME 8.1 FL (7.4-10.4); MONOCYTES # (AUTO) 0.7 X10'3 (0-0.9); MONOCYTES % (AUTO) 6.9 % (2-12); NEUTROPHILS # (AUTO) 7.2 X10'3 (1.8-7.7); NEUTROPHILS % (AUTO) 73.9 % (42-75); PLATELET COUNT 280 X10'3 (140-440); RED CELL DISTRIBUTION WIDTH 14.6 % (11.5-14.5); WHITE BLOOD COUNT 9.8 X10'3 (4.5-11.0)
[2020-04-09 06:35] LABS: ALANINE AMINOTRANSFERASE 18 U/L (12-78); ALBUMIN 2.2 G/DL (3.4-5.0); ALBUMIN/GLOBULIN RATIO 0.6 (1.1-1.5); ALKALINE PHOSPHATASE 86 IU/L (46-116); ANION GAP 9 (8-16); ASPARTATE AMINO TRANSFERASE 26 U/L (10-37); BILIRUBIN,TOTAL 0.7 MG/DL (0.1-1.0); BLOOD UREA NITROGEN 6 MG/DL (7-18); BUN/CREATININE RATIO 6.5 (5.4-32.0); CALCIUM 8.1 MG/DL (8.5-10.1); CHLORIDE 108 MMOL/L (99-107); CREATININE 0.92 MG/DL (0.60-1.10); GLUCOSE 93 MG/DL (70-104); SODIUM 143 MMOL/L (135-145); TOTAL CARBON DIOXIDE 26.1 MMOL/L (24-32); TOTAL PROTEIN 5.9 G/DL (6.4-8.2); eGFR 80 ML/MIN
[2020-04-09 06:44] LABS: POTASSIUM 2.7 MMOL/L (3.5-5.1)
[2020-04-09 07:00] VITALS: BP 132/72
--- NOTE | 2020-04-09 07:04 | NUR ---
Page sent to Dr. Reese: PAGER ID: [phone] MESSAGE: [phone] Benoit Crowe: K is critical at 2.7, replacing per protocol. Thanks, Jessica [id number]
--- NOTE | 2020-04-09 07:14 | NUR ---
Patient in room PCU 3018. I have received report from Jeremiah VANN and had the opportunity to ask questions and assume patient care.
[2020-04-09] MEDS: K and/or MAG REPLACEMENT MC SCH ×2 (08:00→18:54)
[2020-04-09] MEDS: CefTRIAXone 2gm/D5W 50ml 50 ML IV SCH (09:03)
[2020-04-09] MEDS: metroNIDAZOLE-Flagyl 500mg/NS 100 ML IV SCH ×3 (09:03→22:00)
[2020-04-09] MEDS: tamsulosin 0.4mg capsule PO SCH (09:04)
[2020-04-09] MEDS: finasteride 5mg tablet PO SCH (09:04)
[2020-04-09] MEDS: lactobacillus rhamnosus 10,000 MMU CELLS/CAPSULE PO SCH ×2 (09:04→20:08)
[2020-04-09] MEDS: OLANZAPINE 5 MG TABLET PO SCH (09:04)
[2020-04-09] MEDS: atorvastatin 20mg tablet PO SCH (09:04)
[2020-04-09 10:12] LABS: TOTAL CELLS COUNTED 100
[2020-04-09 10:13] LABS: PLATELET ESTIMATE NORMAL; SMUDGE CELLS 1+
[2020-04-09 10:14] LABS: ANISOCYTOSIS FEW; POLYCHROMASIA FEW
[2020-04-09] MEDS: potassium CL 10mEq/100ml bag 100 ML IV PRN ×7 (10:58→21:38)
[2020-04-09 11:00] VITALS: BP 143/79
[2020-04-09] MEDS: normal saline 1000ml 1,000 ML IV SCH ×2 (12:05→22:02)
[2020-04-09 15:00] VITALS: BP 140/85
--- NOTE | 2020-04-09 15:34 | NUR ---
Initial: patient NPO since 04/04, has NG tube for suction. Day 6 NPO. 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 Paged MD "NPO day 6; would recommend TPN if expected to be more than 7 days NPO; bowel care has not been given other than neostigmine." Spoke with MD, likely to move forward with TPN, discussed that pt would need a PICC for TPN. IF proceeding with TPN recs are below. Recommend: 1. IF TPN would recommend continuous 3:1 TPN using Clinimix E 03/27 with 100 ml 20% intralipids at 100 ml/hr to provide total volume 2400 ml, 1782 non protein cals, 2239 total cals, 114 gm protein, 457 gm dextrose, 2.99 mg/kg/min CHO loading. 2. IF TPN, prealbumin and TG q wednesday/, daily wts 3. Advance diet as medically indicated per MD, when able to advance diet as medically indicated recommend heart healthy Addendum: 04/09/20 at [address] Amended: Links added.
--- NOTE | 2020-04-09 16:25 | NUR ---
Received call from lab, was informed that the sales representative wire rope who zachary the 1600 DVT PTT overfilled the blood tube and it must be redrawn. The timed PTT is already late. Will continue to monitor
[2020-04-09] MEDS: heparin 25,000 UNIT/250ml bag 250 ML IV SCH (17:22)
--- NOTE | 2020-04-09 18:13 | NUR ---
Problems reprioritized. Patient report given, questions answered & plan of care reviewed with Jeremiah VANN.
--- NOTE | 2020-04-09 18:15 | NUR ---
Patient in room PCU 3018A. I have received report from EDWAR SY and had the opportunity to ask questions and assume patient care. PATIENT ASLEEP FOR BEDSIDE REPORT BUT EASILY WOKEN. PATIENT ON 2L NC, HEPARIN GTT INFUSING AT 1200 UNITS/HR, NS INFUSING AT 100 ML/HR, PROTONIX GTT INFUSING AT 20 ML/HR PER PROVIDER ORDER. STABLE AT THIS TIME. WILL CONTINUE TO MONITOR CLOSELY.
[2020-04-09 19:00] VITALS: BP 149/84
[2020-04-09] MEDS: zolpidem 5mg tablet PO SCH (20:13)
--- NOTE | 2020-04-09 20:13 | NUR ---
EDER HELD PER NURSING JUDGEMENT. PATIENT SLEEPING, BUT EASILY AWAKENS. WILL CONTINUE TO MONITOR CLOSELY.
[2020-04-09 22:00] VITALS: BP 155/91
--- NOTE | 2020-04-09 22:39 | NUR ---
INFORMED BY LAB THAT APPLE PRESS OPERATOR UNABLE TO OBTAIN 6 HOUR TROPONIN. ATTEMPTED BLOOD DRAW X5. WILL ATTEMPT TO DRAW. Addendum: 04/09/20 at 2356 by Louise Garcia RN DISREGARD NOTE- INCORRECT PATIENT.
[2020-04-10] VITALS (11 sets, daily range): BP systolic 142–158; BP diastolic 80–99
[2020-04-10] MEDS: heparin 25,000 UNIT/250ml bag 250 ML IV SCH ×2 (02:46→14:39)
[2020-04-10] MEDS: normal saline 1000ml 1,000 ML IV SCH ×3 (03:04→23:54)
[2020-04-10] MEDS: pantoprazole 40MG/NS 100ML BAG 100 ML IV SCH ×6 (03:04→23:28)
--- NOTE | 2020-04-10 06:42 | NUR ---
Patient in room PCU 3018. I have received report from Jeremiah VANN and had the opportunity to ask questions and assume patient care.
[2020-04-10 06:47] LABS: MAGNESIUM 1.9 MG/DL (1.5-2.4)
--- NOTE | 2020-04-10 06:52 | NUR ---
Problems reprioritized. Patient report given, questions answered & plan of care reviewed with EDWAR PETIT AND EDWAR ESTRADA.
[2020-04-10 06:53] LABS: POTASSIUM 2.8 MMOL/L (3.5-5.1)
[2020-04-10] MEDS: CefTRIAXone 2gm/D5W 50ml 50 ML IV SCH (08:00)
[2020-04-10] MEDS: K and/or MAG REPLACEMENT MC SCH ×2 (08:00→19:18)
[2020-04-10] MEDS: tamsulosin 0.4mg capsule PO SCH (08:00)
[2020-04-10] MEDS: OLANZAPINE 5 MG TABLET PO SCH (08:00)
[2020-04-10] MEDS: lactobacillus rhamnosus 10,000 MMU CELLS/CAPSULE PO SCH ×2 (08:00→22:02)
[2020-04-10] MEDS: metroNIDAZOLE-Flagyl 500mg/NS 100 ML IV SCH ×3 (09:03→21:36)
--- NOTE | 2020-04-10 09:31 | NUR ---
Awaiting MD orders. PAGER ID: [phone] MESSAGE: Re: [phone] Benoit Crowe. Morning medications are PO, pt. has NG placed on intermittent suction. Can you switch the order to NG? K+ was also 2.7. Will start IV K+ replacement. EDWAR Carreno. [facility] #[id number]
[2020-04-10] MEDS: potassium CL 10mEq/100ml bag 100 ML IV PRN ×8 (10:37→23:28)
--- NOTE | 2020-04-10 10:45 | NUR ---
Spoke to Dr. Banks, Give morning PO medications through NG after crushing them; remove from suction and clamp NG tube for thirty minutes, then resume suction. patient's K+ 2.8, replacing IV per protocol. Dr. Banks notified of K+ level and would like 12 IV bags of 10meq/100ml to be given.
[2020-04-10] MEDS: finasteride 5mg tablet PO SCH (11:13)
[2020-04-10] MEDS: atorvastatin 20mg tablet PO SCH (11:14)
--- NOTE | 2020-04-10 12:57 | NUR ---
Awaiting MD orders. PAGER ID: [phone] MESSAGE: Re: Benoit Crowe. 3018A. Pt. is on day 7 of NPO. Business Relations Manager called with regards for potential PICC placement for TPN. Are you planning to place a PICC or take him to surgery after PE has resolved?
--- NOTE | 2020-04-10 15:41 | NUR ---
[facility] LINE INFORMATION: REF: [id number] LOT: [id number] EXP: 02/05/2021
--- NOTE | 2020-04-10 15:48 | NUR ---
TPN consult: patient NPO since 04/04, has NG tube for suction. Day 7 NPO. 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 Recommend TPN if expected to be more than 7 days NPO. Spoke with bedside nurse, he has a PICC for TPN now, discussed available recs with pharmacy. Recommend: 1. Continuous 3:1 TPN using Clinimix E 03/27 with 100 ml 20% intralipids at 100 ml/hr to provide total volume 2400 ml, 1782 non protein cals, 2239 total cals, 114 gm protein, 457 gm dextrose, 2.99 mg/kg/min CHO loading. 2. Prealbumin and TG q wednesday/, daily wts 3. Advance diet as medically indicated per MD, when able to advance diet as medically indicated recommend heart healthy Addendum: 04/10/20 at [address] Amended: Links added.
[2020-04-10] MEDS ORDERED: total parenteral nutrition 1 EACH, calcium gluconate 12 MEQ, magnesium 16 MEQ, sodium 8... IV SCH ×14 (15:50)
[2020-04-10] MEDS ORDERED: Dextrose 10%-water IV solution 1,000 ML IV PRN (16:05)
[2020-04-10 17:07] LABS: ALANINE AMINOTRANSFERASE 17 U/L (12-78); ALBUMIN 2.2 G/DL (3.4-5.0); ALBUMIN/GLOBULIN RATIO 0.6 (1.1-1.5); ALKALINE PHOSPHATASE 85 IU/L (46-116); ANION GAP 8 (8-16); ASPARTATE AMINO TRANSFERASE 36 U/L (10-37); BILIRUBIN,TOTAL 0.7 MG/DL (0.1-1.0); BLOOD UREA NITROGEN 3 MG/DL (7-18); BUN/CREATININE RATIO 3.9 (5.4-32.0); CALCIUM 8.3 MG/DL (8.5-10.1); CHLORIDE 106 MMOL/L (99-107); CREATININE 0.76 MG/DL (0.60-1.10); GLUCOSE 89 MG/DL (70-104); MAGNESIUM 1.7 MG/DL (1.5-2.4); PHOSPHORUS 2.9 MG/DL (2.3-4.5); PREALBUMIN 13.8 MG/DL (19-36); SODIUM 141 MMOL/L (135-145); TOTAL CARBON DIOXIDE 26.7 MMOL/L (24-32); TOTAL PROTEIN 5.9 G/DL (6.4-8.2); TRIGLYCERIDES 69 MG/DL (20-135); eGFR > 90 ML/MIN
[2020-04-10 17:29] LABS: POTASSIUM 2.9 MMOL/L (3.5-5.1)
--- NOTE | 2020-04-10 17:35 | NUR ---
PAGER ID: [phone] MESSAGE: Re: Fan Laboy, Room: 301. Critical Potassium of 2.9. Currently replacing Potassium with IV replacement. -[facility] #[id number] Dr. Banks paged concerning Pt's Critical potassium
--- NOTE | 2020-04-10 18:00 | NUR ---
Orientee documentation: I have reviewed and agree with all interventions, assessments performed and documented by Ev VANN.
--- NOTE | 2020-04-10 18:15 | NUR ---
Problems reprioritized. Patient report given, questions answered & plan of care reviewed with EDWAR Owens.
--- NOTE | 2020-04-10 18:20 | NUR ---
Patient in room PCU 3018. I have received report from Bhavesh RN and Ev RN and had the opportunity to ask questions and assume patient care.
--- NOTE | 2020-04-10 18:21 | NUR ---
Problems reprioritized. Patient report given, questions answered & plan of care reviewed with Graciela VANN.
[2020-04-10] MEDS ORDERED: fentaNYL/PF 50MCG/1 ML 2ML syringe ONE (19:25)
[2020-04-10] MEDS ORDERED: MIDAZolam 5mg/5ml vial ONE (19:25)
[2020-04-10] MEDS ORDERED: fat emulsion 20% IV 100 ML, MVI, adult No.4 with vit. K 10 ML, Trace element-5 inj. 1 M... IV SCH ×4 (21:00)
--- NOTE | 2020-04-10 21:20 | NUR ---
Returned from GI lab @2119 with EDWAR Holloway. NG was removed in GI lab and patient came back with a tube inserted in the rectum to help with air decompression and to remove stool. I attached it to a hardwick bag for drainage. Patient is on a clear liquid diet. Tolerating chicken broth well. I will D/C the q6h accuchecks for being NPO.
[2020-04-10] MEDS: zolpidem 5mg tablet PO SCH (21:36)
--- NOTE | 2020-04-10 21:58 | NUR ---
Question on TPN paged Hugh PAGER ID: [phone] MESSAGE: Benoit Crowe PCU [id number] here for bowel obstruction. Just came back from GI lab and is on clear liquid diet. Does he still need TPN?
[2020-04-10] MEDS ORDERED: neostigmine methylsulfate 1 MG/ML 10ml vial IV ONE (23:20)
[2020-04-10] MEDS ORDERED: neostigmine methylsulfate 1 MG/ML 10ml vial IV PRN (23:20)
[2020-04-11 02:00] VITALS: BP 155/88
--- NOTE | 2020-04-11 02:30 | NUR ---
Patient in room U 3018. I have received report from Ev VANN and EDWAR Ospina and had the opportunity to ask questions and assume patient care. Addendum: 04/11/20 at 0232 by Graciela Mejia RN Wrong time. will enter new note
[2020-04-11] MEDS: potassium CL 10mEq/100ml bag 100 ML IV PRN (03:17)
[2020-04-11] MEDS: heparin 25,000 UNIT/250ml bag 250 ML IV SCH ×2 (05:06→16:51)
[2020-04-11] MEDS: pantoprazole 40MG/NS 100ML BAG 100 ML IV SCH ×4 (05:23→21:28)
[2020-04-11] MEDS: metroNIDAZOLE-Flagyl 500mg/NS 100 ML IV SCH ×3 (05:23→23:05)
[2020-04-11 05:54] LABS: ALANINE AMINOTRANSFERASE 21 U/L (12-78); ALBUMIN 2.2 G/DL (3.4-5.0); ALBUMIN/GLOBULIN RATIO 0.6 (1.1-1.5); ALKALINE PHOSPHATASE 82 IU/L (46-116); ANION GAP 10 (8-16); ASPARTATE AMINO TRANSFERASE 37 U/L (10-37); BILIRUBIN,TOTAL 0.8 MG/DL (0.1-1.0); BLOOD UREA NITROGEN 4 MG/DL (7-18); BUN/CREATININE RATIO 5.8 (5.4-32.0); CALCIUM 8.1 MG/DL (8.5-10.1); CHLORIDE 108 MMOL/L (99-107); CREATININE 0.69 MG/DL (0.60-1.10); GLUCOSE 85 MG/DL (70-104); MAGNESIUM 1.7 MG/DL (1.5-2.4); PHOSPHORUS 2.7 MG/DL (2.3-4.5); POTASSIUM 3.6 MMOL/L (3.5-5.1); PREALBUMIN 13.6 MG/DL (19-36); SODIUM 141 MMOL/L (135-145); TOTAL CARBON DIOXIDE 23.5 MMOL/L (24-32); TOTAL PROTEIN 5.7 G/DL (6.4-8.2); TRIGLYCERIDES 58 MG/DL (20-135); eGFR > 90 ML/MIN
--- NOTE | 2020-04-11 06:15 | NUR ---
Patient in room PCU 3018. I have received report from EDWAR Owens and had the opportunity to ask questions and assume patient care. Patient currently resting in bed, bed locked and low, call light in reach, no acute distress, will continue to monitor.
--- NOTE | 2020-04-11 06:24 | NUR ---
Problems reprioritized. Patient report given, questions answered & plan of care reviewed with EDWAR Mills.
--- NOTE | 2020-04-11 07:18 | NUR ---
PAGER ID: [phone] MESSAGE: Lina Rondon RN, ext [phone], [phone], Sebastien, no CBC for 3 days, patient on heparin drip, can I order?
[2020-04-11 07:57] VITALS: BP 154/86
[2020-04-11] MEDS: K and/or MAG REPLACEMENT MC SCH ×2 (08:00→19:05)
[2020-04-11] MEDS: OLANZAPINE 5 MG TABLET PO SCH (08:00)
[2020-04-11 08:01] LABS: BASOPHILS # (AUTO) 0.1 X10'3 (0-0.2); BASOPHILS % (AUTO) 0.5 % (0-1); EOSINOPHILS # (AUTO) 0.2 X10'3 (0-0.9); EOSINOPHILS % (AUTO) 1.8 % (0-6); HEMATOCRIT 37.4 % (42.0-52.0); HEMOGLOBIN 12.5 g/dl (14.0-17.9); LYMPHOCYTES # (AUTO) 1.3 X10'3 (1.1-4.8); LYMPHOCYTES % (AUTO) 12.3 % (21-51); MEAN CORPUSCULAR HEMOGLOBIN 28.9 PG (27.0-31.0); MEAN CORPUSCULAR HGB CONC 33.3 g/dL (33.0-36.5); MEAN CORPUSCULAR VOLUME 86.8 FL (78-98); MEAN PLATELET VOLUME 8.8 FL (7.4-10.4); MONOCYTES # (AUTO) 0.6 X10'3 (0-0.9); MONOCYTES % (AUTO) 6.1 % (2-12); NEUTROPHILS # (AUTO) 8.2 X10'3 (1.8-7.7); NEUTROPHILS % (AUTO) 79.3 % (42-75); PLATELET COUNT 282 X10'3 (140-440); RED BLOOD COUNT 4.31 X10'6 (4.70-6.10); RED CELL DISTRIBUTION WIDTH 14.4 % (11.5-14.5); WHITE BLOOD COUNT 10.4 X10'3 (4.5-11.0)
[2020-04-11] MEDS: CefTRIAXone 2gm/D5W 50ml 50 ML IV SCH (08:31)
[2020-04-11] MEDS: lactobacillus rhamnosus 10,000 MMU CELLS/CAPSULE PO SCH ×2 (08:31→20:27)
[2020-04-11] MEDS: atorvastatin 20mg tablet PO SCH (08:32)
[2020-04-11] MEDS: tamsulosin 0.4mg capsule PO SCH (08:32)
[2020-04-11] MEDS: polyethylene glycol 3350 17gm powd pack PO SCH ×2 (08:33→20:27)
[2020-04-11] MEDS: finasteride 5mg tablet PO SCH (08:35)
[2020-04-11 09:45] LABS: LARGE PLATELETS FEW; PLATELET ESTIMATE NORMAL; TOTAL CELLS COUNTED 100
[2020-04-11] MEDS ORDERED: magnesium Cl slow-release 64mg tablet PO PRN (09:55)
[2020-04-11] MEDS ORDERED: magnesium 4gm in 100ml NS 100 ML IV PRN (09:55)
[2020-04-11] MEDS ORDERED: potassium CL 10mEq/100ml bag 100 ML IV PRN (09:55)
--- NOTE | 2020-04-11 10:08 | NUR ---
per Dr. Banks, patient K needs to be 4.0, will continue with replacement.
[2020-04-11 11:00] VITALS: BP 148/88
[2020-04-11] MEDS ORDERED: fat emulsion 20% IV 181.82 ML, MVI, adult No.4 with vit. K 4.55 ML, Trace element-5 inj... IV SCH ×4 (13:14)
[2020-04-11] MEDS ORDERED: Dextrose 10%-water IV solution 1,000 ML IV PRN (13:14)
[2020-04-11] MEDS ORDERED: fat emulsion 20% IV 100 ML, MVI, adult No.4 with vit. K 10 ML, Trace element-5 inj. 1 M... IV SCH ×4 (13:30)
[2020-04-11] MEDS: normal saline 1000ml 1,000 ML IV SCH (14:50)
[2020-04-11 15:03] VITALS: BP 117/63
[2020-04-11] MEDS: potassium Cl 20 mEq SR tablet PO PRN ×2 (16:52→21:28)
[2020-04-11 18:00] VITALS: BP 116/77
--- NOTE | 2020-04-11 18:16 | NUR ---
Problems reprioritized. Patient report given, questions answered & plan of care reviewed with EDWAR Hay.
--- NOTE | 2020-04-11 18:56 | NUR ---
Patient in room PCU 3018. I have received report from Lina Foster RN and had the opportunity to ask questions and assume patient care.
[2020-04-11] MEDS: zolpidem 5mg tablet PO SCH (20:27)
[2020-04-11 22:00] VITALS: BP 144/81
[2020-04-12] MEDS: pantoprazole 40MG/NS 100ML BAG 100 ML IV SCH ×3 (01:58→12:09)
[2020-04-12 02:00] VITALS: BP 150/88
--- NOTE | 2020-04-12 02:00 | NUR ---
TPN increased to 100 mL/hr. Pt states no nausea/vomiting and without apparent distress and SOB. Will continue to monitor patient.
[2020-04-12] MEDS: normal saline 1000ml 1,000 ML IV SCH ×2 (02:03→10:02)
[2020-04-12] MEDS: potassium Cl 20 mEq SR tablet PO PRN ×3 (02:04→12:11)
[2020-04-12 04:00] LABS: BASOPHILS # (AUTO) 0.1 X10'3 (0-0.2); EOSINOPHILS # (AUTO) 0.2 X10'3 (0-0.9); HEMATOCRIT 33.7 % (42.0-52.0); HEMOGLOBIN 11.6 g/dl (14.0-17.9); LYMPHOCYTES # (AUTO) 1.4 X10'3 (1.1-4.8); LYMPHOCYTES % (AUTO) 16.3 % (21-51); MEAN CORPUSCULAR HEMOGLOBIN 29.6 PG (27.0-31.0); MEAN CORPUSCULAR HGB CONC 34.3 g/dL (33.0-36.5); MEAN CORPUSCULAR VOLUME 86.4 FL (78-98); MEAN PLATELET VOLUME 7.9 FL (7.4-10.4); MONOCYTES # (AUTO) 0.7 X10'3 (0-0.9); MONOCYTES % (AUTO) 8.3 % (2-12); NEUTROPHILS % (AUTO) 71.4 % (42-75); PLATELET COUNT 266 X10'3 (140-440); RED CELL DISTRIBUTION WIDTH 14.7 % (11.5-14.5); WHITE BLOOD COUNT 8.4 X10'3 (4.5-11.0)
[2020-04-12 04:04] LABS: ALANINE AMINOTRANSFERASE 17 U/L (12-78); ALBUMIN 2.1 G/DL (3.4-5.0); ALBUMIN/GLOBULIN RATIO 0.7 (1.1-1.5); ALKALINE PHOSPHATASE 78 IU/L (46-116); ANION GAP 2 (8-16); ASPARTATE AMINO TRANSFERASE 24 U/L (10-37); BILIRUBIN,TOTAL 0.4 MG/DL (0.1-1.0); BLOOD UREA NITROGEN 4 MG/DL (7-18); BUN/CREATININE RATIO 4.3 (5.4-32.0); CALCIUM 7.8 MG/DL (8.5-10.1); CHLORIDE 109 MMOL/L (99-107); CREATININE 0.93 MG/DL (0.60-1.10); GLUCOSE 160 MG/DL (70-104); MAGNESIUM 1.7 MG/DL (1.5-2.4); POTASSIUM 3.1 MMOL/L (3.5-5.1); SODIUM 140 MMOL/L (135-145); TOTAL CARBON DIOXIDE 29.3 MMOL/L (24-32); TOTAL PROTEIN 5.3 G/DL (6.4-8.2); eGFR 79 ML/MIN
[2020-04-12] MEDS: metroNIDAZOLE-Flagyl 500mg/NS 100 ML IV SCH (05:18)
[2020-04-12 06:00] VITALS: BP 162/92
--- NOTE | 2020-04-12 06:29 | NUR ---
Problems reprioritized. Patient report given, questions answered & plan of care reviewed with Lina Foster RN.
--- NOTE | 2020-04-12 06:35 | NUR ---
Patient in room PCU 3018. I have received report from EDWAR Hay and had the opportunity to ask questions and assume patient care. Patient curretnly resting in bed, bed locked and low, call light in reach, no acute distress, will continue to monitor
[2020-04-12] MEDS: K and/or MAG REPLACEMENT MC SCH (08:00)
[2020-04-12] MEDS ORDERED: Neutra Phos packet PO PRN (08:00)
[2020-04-12] MEDS: OLANZAPINE 5 MG TABLET PO SCH (08:00)
[2020-04-12] MEDS: tamsulosin 0.4mg capsule PO SCH (08:22)
[2020-04-12] MEDS: atorvastatin 20mg tablet PO SCH (08:22)
[2020-04-12] MEDS: lactobacillus rhamnosus 10,000 MMU CELLS/CAPSULE PO SCH (08:22)
[2020-04-12] MEDS: finasteride 5mg tablet PO SCH (08:23)
[2020-04-12 11:00] VITALS: BP 153/84
[2020-04-12] MEDS: heparin 25,000 UNIT/250ml bag 250 ML IV SCH (14:37)
[2020-04-12 14:57] VITALS: BP 136/89
--- NOTE | 2020-04-12 16:39 | NUR ---
Report called to Daina Mccauley RN received report. Patient transferred via ambulance with DARLopez nurse in accompaniment. VSS, no acute distress, stable at time of transfer.
== END 2020-04-12 16:38 | DRG 388 ==
LOC: ER 19:33 → ED HOLD 22:02 → SUR 3N 23:05 → PCU 3S 04-05 20:11
PROVIDERS: ADMIT Internal Medicine; ATTEND Internal Medicine
PROC: BW211ZZ Computerized Tomography (CT Scan) of Abdomen and Pelvis using Low Osmolar Contrast (ICD-10-PCS; 2020-04-05)
PROC: B32T1ZZ Computerized Tomography (CT Scan) of Left Pulmonary Artery using Low Osmolar Contrast (ICD-10-PCS; 2020-04-05)
PROC: B3201ZZ Computerized Tomography (CT Scan) of Thoracic Aorta using Low Osmolar Contrast (ICD-10-PCS; 2020-04-05)
PROC: B32S1ZZ Computerized Tomography (CT Scan) of Right Pulmonary Artery using Low Osmolar Contrast (ICD-10-PCS; 2020-04-05)
PROC: 0D9670Z Drainage of Stomach with Drainage Device, Via Natural or Artificial Opening (ICD-10-PCS; 2020-04-06)
PROC: 0D9 Gastrointestinal System, Drainage (ICD-10-PCS; principal; 2020-04-10)
PROC: 02HV33Z Insertion of Infusion Device into Superior Vena Cava, Percutaneous Approach (ICD-10-PCS; 2020-04-10)
PROC: B548ZZA Ultrasonography of Superior Vena Cava, Guidance (ICD-10-PCS; 2020-04-10)
DX: K56.609 Unspecified intestinal obstruction, unspecified as to partial versus complete obstruction (principal); I26.99 Other pulmonary embolism without acute cor pulmonale; F20.0 Paranoid schizophrenia; K92.2 Gastrointestinal hemorrhage, unspecified; N39.0 Urinary tract infection, site not specified; K59.39 Other megacolon; E87.6 Hypokalemia; E78.00 Pure hypercholesterolemia, unspecified; E11.9 Type 2 diabetes mellitus without complications; E78.5 Hyperlipidemia, unspecified; M25.562 Pain in left knee; G89.29 Other chronic pain; R14.0 Abdominal distension (gaseous); N40.0 Benign prostatic hyperplasia without lower urinary tract symptoms; K59.00 Constipation, unspecified; E66.01 Morbid (severe) obesity due to excess calories; F32.9 Major depressive disorder, single episode, unspecified; Z79.84 Long term (current) use of oral hypoglycemic drugs; Z86.73 Personal history of transient ischemic attack (TIA), and cerebral infarction without residual deficits; Z68.29 Body mass index [BMI] 29.0-29.9, adult; Z87.440 Personal history of urinary (tract) infections; Z79.899 Other long term (current) drug therapy; Z79.82 Long term (current) use of aspirin
CPT/HCPCS: 36415; 36573; 36600; 45337; 71045; 71275; 74018; 74176; 74177; 76937; 80053; 81001; 82803; 82948; 83036; 83605; 83735; 84100; 84132; 84134; 84145; 84478; 85018; 85025; 85610; 85730; 87040; 87077; 87081; 87088; 87186; 93005; 93308; 96374; 97110; 97116; 97161; 97530; 99152; 99153; 99285; A4620; C9113; G0378; J0461; J0696; J0744; J1644; J1815; J2250; J2405; J2710; J3010; J3475; J3480; J3490; J7030; J7040; Q9963; Q9967

== ENCOUNTER 2023-02-18 01:05 | Emergency (ER) | payer MEDICARE, MEDICAID ==
[~2023-02-18] VITALS: Ht 177.8 cm; Wt 120.0 kg
[~2023-02-18 01:05] MED LIST changes: +ASPI-1265 PO; -ASPI1CPM9 PO; -ATOR20TA PO; +ATOR20TA66 PO; +FINA5TAB11 PO; +OLAN5TAB75 PO
[2023-02-18 01:08] VITALS: BP 0/0
--- NOTE | 2023-02-18 01:20 | NUR ---
TIME OF 0119 ANNOUNCED BY
--- NOTE | 2023-02-18 02:09 | NUR ---
SPOKE WITH DONOR NETWORK,AND REFERRAL SPECIALIST NICOLETTE RELEASED BODY TO MORTUARY, ED DR. PICHARDO CALLED AND NOTIFIED PATIENTS , CALLING JUDIT AND MATT HOLCOMB PER PATIENTS WIFES REQUEST
== END 2023-02-18 02:57 ==
LOC: ER 01:06
DX: I46.9 Cardiac arrest, cause unspecified (principal); I10 Essential (primary) hypertension; E11.9 Type 2 diabetes mellitus without complications; F31.9 Bipolar disorder, unspecified; Z79.899 Other long term (current) drug therapy; Z79.82 Long term (current) use of aspirin
CPT/HCPCS: 31500; 92950; 99285